=== PATIENT | male | born 1980 | race African-American/Black ===

== ENCOUNTER 2018-07-15 00:26 | Emergency (ER) | payer MEDICAID, OTHER ==
[~2018-07-15] VITALS: Ht 182.9 cm; Wt 88.3 kg
[2018-07-15 00:28] VITALS: BP 143/89; PULSE 92; RESP 19; Ht 182.9 cm; Wt 88.3 kg
--- NOTE | 2018-07-15 01:04 | ERD ---
ER Documentation Chief Complaint Chief Complaint FB; BUG IN LEFT EAR; NOTICED AROUND 0900AM HPI 37-year-old male, previously healthy, presents to the emergency department, complaining of a foreign body sensation in the left ear since this morning. The patient believes that he got an insect inside the ear canal. He denies ear discharge, no fever, no headache, no sore throat. ROS All systems reviewed and are negative except as per history of present illness. Allergies Allergies: Coded Allergies: No Known Allergy (Unverified , 07/15/18) PMhx/Soc Medical and Surgical Hx: pt denies Medical Hx, pt denies Surgical Hx Hx Alcohol Use: Yes (socially) Hx Substance Use: Yes (marijauan, cocaine) Hx Tobacco Use: No Smoking Status: Current every day smoker Physical Exam Vitals Vital Signs Date Temp Pulse Resp B/P (MAP) Pulse Ox O2 O2 Flow FiO2 Time Delivery Rate 07/15/18 97.9 92 19 143/89 99 00:28 (107) Physical Exam Patient alert, oriented, vital signs stable. HEENT: Normocephalic, atraumatic. EYES: PERRLA, EOMI, Sclera and conjunctiva appear normal. EARS: Left ear with abrasion and edema of the canal, normal tympanic membrane. Contralateral ear normal. THROAT: Erythematous oropharynx. NECK: Supple, No lymphadenopathy. Full ROM without pain or tenderness. HEART: RRR, no rubs, murmurs, clicks or gallops. LUNGS: Clear to auscultation. ABDOMEN: Soft, non-tender without masses or hepatosplenomegaly. EXTREMITIES: No edema bilaterally. BACK: Full ROM, no deformity, normal back exam NEURO: Cranial nerves grossly intact, no motor or sensory deficit Procedures/MDM Vital signs stable, differential diagnosis include but not limited to: infection bacterial/viral/fungal. Tonsillitis, eustachian dysfunction, allergies, foreign body, cholesteatoma. Less likely mastoiditis, malignant otitis, meningitis. Physical examination and clinical presentation consistent most likely with abrasion of the right ear canal During the ED course the patient remained stable, no new complaints. Clinical impression discussed with [the patient who agrees with management. The patient is stable to be treated outpatient and will be discharged home with a Rx for topical Cortisporin. Some side effects of prescribed medications (headache, rash, nausea, vomiting, diarrhea, interactions with other medications) were reviewed. The patient was instructed to follow up with the primary care provider in the next 48h. If symptoms persist, worsen or new symptoms develop, then patient s maniuld return to the ED immediately. Disclaimer: Inadvertent spelling and grammatical errors are likely due to EHR/dictation software use and do not reflect on the overall quality of patient care. Also, please note that the electronic time recorded on this note does not necessarily reflect the actual time of the patient encounter. Departure Diagnosis: Primary Impression: Abrasion of right ear canal Condition: Stable Additional Instructions: Thank you very much for allowing us to participate in your care. Your health and safety is our top priority at [facility]. The evaluation in the emergency department has been done to rule out an acute emergency, therefore, chronic conditions like malignancy or other diseases have not been evaluated; therefore, you need to follow up with a primary care provider in the next 48h. If symptoms persist, worsen or new symptoms develop, then patient should return to the ED immediately. Call your primary care doctor TOMORROW for an appointment during the next 2-4 days and bring all the information provided. Have prescriptions filled and follow precisely the directions on the label. If the symptoms get worse and your provider is unavailable, return to the Emergency Department immediately. CLEMENT VINES MD Jul 15, 2018 01:04
[2018-07-15] MEDS ORDERED: NPH10OT LEFT EAR (01:11)
== END 2018-07-15 01:20 | disposition home or self-care (01) ==
LOC: FTE 00:26
DX: S00.411A Abrasion of right ear, initial encounter (principal); F17.210 Nicotine dependence, cigarettes, uncomplicated; X58.XXXA Exposure to other specified factors, initial encounter; Y92.9 Unspecified place or not applicable
CPT/HCPCS: 99283

== ENCOUNTER 2018-10-06 10:24 | Emergency (ER) | payer SELFPAY ==
[~2018-10-06] VITALS: Ht 180.3 cm; Wt 87.5 kg
[~2018-10-06 10:24] MED LIST: ERYT1OIN6 LEFT EYE; NPH10OT LEFT EAR
[2018-10-06 10:31] VITALS: BP 122/78; PULSE 87; RESP 18; Ht 180.3 cm; Wt 87.5 kg
--- NOTE | 2018-10-06 12:17 | ERD ---
ER Documentation Chief Complaint Chief Complaint Pt. woke up with left eye redness today. Denies injury HPI 37-year-old male with no reported past medical history who presents with complaint of left eye redness since today. Denies recent injury or trauma. Having mild discharge from left eye and crusting. He otherwise without complaint. Denies pain with eye movement. ROS All systems reviewed and are negative except as per history of present illness. Medications Home Meds Active Scripts Erythromycin Base (Erythromycin) 1 Gm Oint...g., 1 APPLIC LEFT EYE QID for 7 Days Prov:ANNAMARIA RIZO PA-C 10/06/18 Neomycin/Polymyxin/Hydrocort* (Cortisporin* Otic) 10 Ml Susp, 4 DROP LEFT EAR QID for 7 Days, EA Prov:CLEMENT VINES MD 07/15/18 Allergies Allergies: Coded Allergies: No Known Allergy (Unverified , 07/15/18) PMhx/Soc Medical and Surgical Hx: pt denies Medical Hx, pt denies Surgical Hx Hx Alcohol Use: Yes (socially) Hx Substance Use: No Hx Tobacco Use: No Smoking Status: Never smoker FmHx Family History: No diabetes, No coronary disease, No other Physical Exam Vitals Vital Signs Date Temp Pulse Resp B/P (MAP) Pulse Ox O2 O2 Flow FiO2 Time Delivery Rate 10/06/18 97.2 87 18 122/78 97 10:31 (93) Physical Exam I have reviewed the triage vital signs. Const: Well nourished, well developed, appears stated age Eyes: PERRL, no conjunctival injection, mild erythema of left eye, mild crusting, no pain with eye movement HENT: NCAT, Neck supple without meningismus CV: RRR, Warm, well-perfused extremities RESP: CTAB, Unlabored respiratory effort GI: soft, non-tender, non-distended, no masses MSK: No gross deformities appreciated Skin: Warm, dry. No rashes Neuro: grossly non focal Psych: Appropriate mood and affect. Procedures/MDM 37-year-old male patient presents with left eye redness. Symptoms likely secondary to viral conjunctivitis. Patient insisting on antibiotic treatment in case he gets worse. Will prescribe erythromycin ophthalmic per patient's request, instructions only take if symptoms do not improve in 48 hours. DISPOSITION PLAN: We discussed follow up with the patient's primary care doctor within 24 to 48 hours. Patient counseled regarding my diagnostic impression and care plan. Prior to discharge all questions answered. Pt agrees with treatment plan and understands strict return precautions. Precautionary instructions provided including instructions to return to the ER if not improving or for any worsening or changing symptoms or concerns. Disclaimer: Inadvertent spelling and grammatical errors are likely due to EHR/dictation software use and do not reflect on the overall quality of patient care. Also, please note that the electronic time recorded on this note does not necessarily reflect the actual time of the patient encounter. Departure Diagnosis: Primary Impression: Eye redness Condition: Stable Patient Instructions: Conjunctivitis Caused by Infection Referrals: [facility] YOU HAVE RECEIVED A MEDICAL SCREENING EXAM AND THE RESULTS INDICATE THAT YOU DO NOT HAVE A CONDITION THAT REQUIRES URGENT TREATMENT IN THE EMERGENCY DEPARTMENT. FURTHER EVALUATION AND TREATMENT OF YOUR CONDITION CAN WAIT UNTIL YOU ARE SEEN IN YOUR DOCTORS OFFICE WITHIN THE NEXT 1-2 DAYS. IT IS YOUR RESPONSIBILITY TO MAKE AN APPOINTMENT FOR FOLOW-UP CARE. IF YOU HAVE A PRIMARY DOCTOR --you should call your primary doctor and schedule an appointment IF YOU DO NOT HAVE A PRIMARY DOCTOR YOU CAN CALL OUR PHYSICIAN REFERRAL HOTLINE AT IF YOU CAN NOT AFFORD TO SEE A PHYSICIAN YOU CAN CHOSE FROM THE FOLLOWING [facility] [address] [facility] [facility]. [facility] [address] [facility]. [facility] [address] [facility] [facility] [address] [facility] [facility]. [facility] [address] [facility]. [facility]. [address] Additional Instructions: Call your primary care doctor TOMORROW for an appointment during the next 2-3 days.See the doctor sooner or return here if your condition worsens before your appointment time. ANNAMARIA RIZO PA-C Oct 06, 2018 12:17
== END 2018-10-06 12:31 | disposition home or self-care (01) ==
LOC: FTE 10:24
DX: H57.89 Other specified disorders of eye and adnexa (principal)
CPT/HCPCS: 99283